=== PATIENT | female | born 1950 | race Caucasian/White ===

== ENCOUNTER 2025-06-27 09:47 | Emergency (ER) | payer MEDICARE ==
[~2025-06-27] VITALS: Ht 165.1 cm; Wt 66.0 kg
[2025-06-27] MEDS ORDERED: AMOX TR-K CLV1 EAC2 PO (10:17)
[2025-06-27] MEDS ORDERED: IBUPROFEN 600 MG TAB ONE (10:21)
[2025-06-27] MEDS: TETANUS/DIPHTHERIA TOX ADULT 0.5 ML SYR IM ONE (10:26)
[2025-06-27] MEDS: IBUPROFEN 600 MG TAB PO STA (10:26)
[2025-06-27 11:02] VITALS: PULSE 58; RESP 16; TEMP 97.4; O2SAT 96
== END 2025-06-27 11:02 | disposition home or self-care (01) ==
LOC: FSED 09:50
DX: S61.431A Puncture wound without foreign body of right hand, initial encounter (principal); S61.101A Unspecified open wound of right thumb with damage to nail, initial encounter; W54.0XXA Bitten by dog, initial encounter; Y92.89 Other specified places as the place of occurrence of the external cause
CPT/HCPCS: 90471; 90714; 96372; 99284